=== PATIENT | male | born 1945 | race Caucasian/White ===

== ENCOUNTER 2020-11-16 15:39 | Emergency (ER) | payer MEDICARE, OTHER ==
[2020-11-16 16:38] LABS: HEMOGLOBIN 13.7 gm/dl (14.0-17.5); RED BLOOD COUNT 4.26 M/UL (4.20-5.50); WHITE BLOOD COUNT 5.8 K/UL (4.5-11.0)
[2020-11-16 17:09] LABS: BUN/CREATININE RATIO 19 (0-10)
== END 2020-11-16 20:00 | disposition home or self-care (01) ==
LOC: ER1 15:39
PROVIDERS: Emergency Medicine
DX: I63.9 Cerebral infarction, unspecified (principal); Z20.822 Contact with and (suspected) exposure to COVID-19
CPT/HCPCS: 70450; 71045; 80053; 82550; 82553; 83874; 84484; 85025; 99285; U0002